=== PATIENT | female | born 1975 | race Caucasian/White ===

== ENCOUNTER 2022-11-05 13:05 | Emergency (ER) | payer OTHER, SELFPAY ==
--- NOTE | ~2022-11-05 | XR_ITS ---
XR abdomen/kub 1V 11/05/2022 13:53 INDICATION: Right flank pain. Microscopic hematuria. TECHNIQUE: KUB COMPARISON: None FINDINGS: Bowel gas pattern is normal. There is no evidence of free air, mass, organomegaly, ascites or obstruction. No abnormal calculi are seen. The bones appear intact. IMPRESSION: 1: No acute abdominal abnormality identified. Reviewed, dictated and finalized at location A. /DIE MAKER
[2022-11-05 13:15] VITALS: BP 115/70; PULSE 62; RESP 16; TEMP 36.2; O2SAT 100
--- NOTE | 2022-11-05 13:28 | ED.FEMALEGU ---
HPI - Female Genitourinary General Chief complaint: Urogenital-Female Stated complaint: Right side and back pain. Frequent urination Time Seen by Provider: 11/05/22 13:28 Source: patient Mode of arrival: ambulatory Limitations: no limitations History of Present Illness HPI Narrative: 47-year-old female presents with complaint of right-sided flank pain, urinary frequency, pain to urethra for several weeks. Reports the right flank pain has been off and on. Called her PCP for appointment both unable to see her. Denies nausea vomiting diarrhea. No fever chills. States when she takes ibuprofen it helps the pain. Reports history of kidney stones 22 years ago. Patient is well-appearing, and in no acute distress. Afebrile. Denies hematuria. All systems reviewed and negative except as noted above. Related Data Home Medications Medication Instructions Recorded Confirmed albuterol sulfate 90 mcg/actuation 90 mcg inhalation USEASDIRECTD PRN 11/05/22 11/05/22 aerosol inhaler Shortness Of Breath cetirizine 10 mg tablet (Zyrtec) 10 mg PO DAILY 11/05/22 11/05/22 dupilumab 300 mg/2 mL subcutaneous 300 mg subcut USEASDIRECTD 11/05/22 11/05/22 syringe (Dupixent) mometasone-formoterol HFA 100 2 puff inhalation Q12H 11/05/22 11/05/22 mcg-5 mcg/actuation aerosol inhaler (Dulera) montelukast 10 mg tablet 10 mg PO DAILY 11/05/22 11/05/22 Allergies Allergy/AdvReac Type Severity Reaction Status Date / Time No Known Allergies Allergy Verified 11/05/22 13:16 Review of Systems Review of Systems: CONSTITUTIONAL: Denies fever, chills, or sweats. EYES: Denies visual changes, redness, or discharge. ENT: Denies rhinorrhea, congestion, sore throat, or otalgia. CARDIOVASCULAR: Denies chest pain, palpitations, or edema. RESPIRATORY: Denies cough or dyspnea. GASTROINTESTINAL: Denies abdominal pain, nausea, vomiting, or diarrhea. GENITOURINARY: Denies dysuria or hematuria. Reports right flank pain, urinary frequency, the urethra pain. SKIN: Denies rash or itching. MUSCULOSKELETAL: Denies back pain, joint pain, or myalgia. NEUROLOGIC: Denies headache, numbness, or weakness. PSYCHIATRIC: Denies anxiety or depression. All other systems reviewed are negative, except as documented in HPI. PMFSH Comments At time of signature, agree with nursing past medical, surgical, social and family history. There is no relevant family history pertinent to the presenting complaint. Exam Narrative: GENERAL: This is a well-nourished, well-developed patient, in no apparent distress. HEAD: normocephalic, atraumatic. EYES: PERRL. Sclera clear/white. Vision is grossly intact. EARS: External ears normal NOSE: External nose normal NECK: Neck supple, non-tender without lymphadenopathy, masses or thyromegaly. CARDIOVASCULAR: Regular rate and rhythm without murmurs, gallops, or rubs. RESPIRATORY: Clear to auscultation. Breath sounds equal bilaterally. No wheezes, rales, or rhonchi. SKIN: warm, Dry, intact with no suspicious lesions or rash, good texture and turgor. NEURO: awake, alert, and oriented to person, place and time. There were no obvious focal neurologic abnormalities. EXTREMITIES: No joint tenderness, effusion, or edema noted. Course Course Level of Care: Express Care Visit Vital Signs Vital signs: Vital Signs Temperature 36.2 C L 11/05/22 13:15 Pulse Rate 62 11/05/22 13:15 Respiratory Rate 16 11/05/22 13:15 Blood Pressure 115/70 11/05/22 13:15 Pulse Oximetry 100 11/05/22 13:15 Oxygen Delivery Room Air 11/05/22 13:15 Temperature 36.2 C L 11/05/22 13:15 Pulse Rate 62 11/05/22 13:15 Respiratory Rate 16 11/05/22 13:15 Blood Pressure 115/70 11/05/22 13:15 Pulse Oximetry 100 11/05/22 13:15 Oxygen Delivery Room Air 11/05/22 13:15 Reviewed MDM - Female Genitourinary MDM Narrative Medical decision making narrative: Patient reports intermittent right flank pain, no right flank pain at this time. A
== END 2022-11-05 14:24 | disposition home or self-care (01) ==
PROVIDERS: Emergency Provider Nurse Practitioner Family
DX: R10.9 Unspecified abdominal pain (principal); R35.0 Frequency of micturition; J45.909 Unspecified asthma, uncomplicated
CPT/HCPCS: 74018; 81003; 99203; G0463